=== PATIENT | male | born 1955 | race Caucasian/White ===

== ENCOUNTER → 2020-09-09 | Outpatient (CLI) | payer OTHER, SELFPAY ==
--- NOTE | 2020-09-09 08:00 | PROSBIL_PTH ---
PATIENT: LORI ROPER LOC: [facility] U#:[id number] AGE/SX: 65/M ROOM: RE09/09/[address]: Dr. Robert Anderson MD : 1955 BED: DIS: 09/09/2020 SPEC #: [id number] RECD: 09/09/20 10:34 STATUS: CELESTE RECurtis #: [id number] GRETCHEN: 09/09/20 08:[address]: Robert Anderson DEPT: SURGICAL PATHOLOGY RECD BY: Kim Sibley ENTERED: 09/09/20 12:36 SP TYPE: PROST BX JEROME DR: Dr. Carole Carlos MD Tissues: A - PROSTATE RIGHT B - PROSTATE RIGHT C - PROSTATE RIGHT D - PROSTATE LEFT E - PROSTATE LEFT F - PROSTATE LEFT Procedures: PROSTATE BX HEADER OPERATION: Prostate biopsy PRE-OP DIAGNOSIS: Elevated PSA TISSUE SUBMITTED: A - Right apex, B - Right mid, C - Right base, D - Left apex, E - Left mid, F - Left base MICROSCOPIC DIAGNOSIS A. Right prostate, apex, core biopsy: Prostatic tissue, negative for malignancy. Focal mild chronic inflammation. B. Right prostate, mid, core biopsy: Prostatic tissue, negative for malignancy. Focal mild chronic inflammation C. Right prostate, base, core biopsy: Prostatic tissue, negative for malignancy. D. Left prostate, apex, core biopsy: Prostatic tissue, negative for malignancy. Focal basal cell hyperplasia and chronic inflammation. E. Left prostate, mid, core biopsy: Prostatic tissue, negative for malignancy. Focal chronic inflammation. F. Left prostate, base, core biopsy: Prostatic tissue, negative for malignancy. Focal mild chronic inflammation SJ:minh 09/10/2020 MICROSCOPIC DESCRIPTION Slides are reviewed. GROSS DESCRIPTION A - Received is one container designated prostate, right apex. The specimen consists of two elongated fragments of light walsh-white soft tissue measuring 1 and 1.5 cm in length and 0.1 cm in diameter. The specimen is totally submitted in one cassette. B - Received is one container designated prostate, right mid. The specimen consists of two elongated fragments of light walsh-white soft tissue each measuring 1.2 cm in length and 0.1 cm in diameter. The specimen is totally submitted in one cassette. C - Received is one container designated prostate, right base. The specimen consists of three elongated fragments of light walsh-white soft tissue measuring 0.3 to 0.6 cm in length and 0.1 cm in diameter. The specimen is totally submitted in one cassette. D - Received is one container designated prostate, left apex. The specimen consists of two elongated fragments of light walsh-white soft tissue each measuring 1.5 cm in length and 0.1 cm in diameter. The specimen is totally submitted in one cassette. E - Received is one container designated prostate, left mid. The specimen consists of two elongated fragments of light walsh-white soft tissue measuring 1.5 and 1.8 cm in length and 0.1 cm in diameter. The specimen is totally submitted in one cassette. F - Received is one container designated prostate, left base. The specimen consists of two elongated fragments of light walsh-white soft tissue each measuring 1.5 cm in length and 0.1 cm in diameter. The specimen is totally submitted in one cassette. / SJ:rg 09/09/20 TC:5 CPT: 68063 x6
== END | disposition home or self-care (01) ==
LOC: LABSPEC 11:04
PROVIDERS: PCP Internal Medicine; Referring Provider Urology; Visit Provider Urology
DX: R97.20 Elevated prostate specific antigen [PSA] (principal)
CPT/HCPCS: 88305; G0416

== ENCOUNTER 2022-04-30 06:43 | Day surgery (SDC) | payer MEDICARE, BC, SELFPAY ==
[2022-04-30] MEDS: Lactated Ringers 1,000 ML 15 ML IV (06:55)
[2022-04-30 07:07] VITALS: BP 134/77; PULSE 69; RESP 16; TEMP 36.6; O2SAT 96; BMI 30.8
--- NOTE | 2022-04-30 07:09 | HP.PCM_ITS ---
HPI - General [facility] Narrative LORI ROPER, is a 67 M who presents for screening colonoscopy. Patient has last colonoscopy 5 years ago and a polyp was removed. Patient denies abdominal pain or blood in stool. FOR[facility]LY [facility] Medical History (Updated 04/30/22 @ 07:[address] Andrea Marino MD) Benign prostatic hyperplasia with lower urinary tract symptoms Essential (primary) hypertension High cholesterol History of colon polyps Hypercholesteremia Non-smoker Wears glasses Home Medications acetaminophen 500 mg tablet (Tylenol Extra Strength) 500 mg PO Q6H PRN Pain 03/09/22 [History Last Taken Unknown] ascorbate calcium (vitamin C) 500 mg tablet 500 mg PO DAILY 03/09/22 [History Last Taken Unknown] lysine 1,000 mg tablet 1,000 mg PO DAILY 03/09/22 [History Last Taken Unknown] multivitamin 1 tab PO DAILY 03/09/22 [History Last Taken Unknown] omega-3 fatty acids 1,000 mg capsule (Super [place]-3) 1,000 mg PO DAILY 03/09/22 [History Last Taken Unknown] psyllium husk 3.4 gram/5.4 gram oral powder (Metamucil) 1 tbsp PO PRN PRN STOOL SOFTENER 03/09/22 [History Last Taken Unknown] quercetin 500 mg capsule 500 mg PO DAILY 03/09/22 [History Last Taken Unknown] rosuvastatin 5 mg tablet 5 mg PO DAILY 03/09/22 [History Last Taken Unknown] saw palmetto 500 mg capsule 500 mg PO BID 03/09/22 [History Last Taken Unknown] turmeric root extract 500 mg capsule 500 mg PO DAILY 03/09/22 [History Last Taken Unknown] zinc gluconate 50 mg tablet 50 mg PO DAILY 03/09/22 [History Last Taken Unknown] cholecalciferol (vitamin D3) 25 mcg (1,000 unit) tablet (Vitamin D3) 25 mcg PO DAILY 04/28/22 [History Last Taken Unknown] Allergy/AdvReac Type Severity Reaction Status Date / Time No Known Allergies Allergy Verified 04/30/22 07:07 Family History (Updated 03/08/22 @ 15:45 by Francisca Mott) Father Prostate cancer CVA (cerebral vascular accident) Mother Hypertension Surgical History History of colonoscopy History of prostate biopsy History of vasectomy History of wisdom tooth extraction Social History (Updated 03/08/22 @ 15:46 by Francisca Mott) household members: spouse Smoking Status: Never smoker alcohol intake: never Past Medical/Surgical History Planned Operation Planned Operative Procedure/s: COLONOSSCOPY Previous Hospitalizations/Surgeries HX Hospitalizations: No Any Problems With Anesthesia: No You/Your Family Experience Fever (Hyperthermia) With Anes: No Cholinesterase deficiency: No Cardiovascular Hx Hypertension: No Respiratory Hx Sleep Apnea: No Hx Respiratory Tract Infection/Cold (presently): No Do You Snore Loudly (louder than talking or can be heard): No Do You Often Feel Tired/ Fatigued/ Sleepy Dring Daytime?: No Has Anyone Observed You Stop Breathing During Sleep?: No Result (for STOP score): Negative Smoking Status: Never smoker Neurological Does patient have nerve stimulator: No Allergies No Known Allergies Allergy (Verified 04/30/22 07:07) Discharge Is Pt Admitted From a Fdc, or a Half-Way: No After D/C, Where Do you Plan to Go: Return Home Physical Exam Const alert and oriented x3 HEENT normocephalic Eyes PERRL Resp normal respiratory effort and normal air movement Cardio regular rate and regular rhythm GI soft to palpation, non-tender and non-distended Extremity normal to inspection Assessment & Plan Assessment/Plan (1) History of colon polyps: PLAN: Patient is here for surveillance colonoscopy due to history of colon polyps 5 years ago. I explained endoscopy in detail to the patient. I explained the risks including but not limited to stroke or heart attack with anesthesia, perforation of the GI tract, bleeding, infection. I explained that any of these could necessitate further emergency surgery. The patient understands and all questions were answered sufficiently. The patient wishes to proceed with procedure. Andrea Marino MD Pager: [facility] [address] [place] [address], [address] [place] [address] Office: Surgery Risks - Colonoscopy Risks Include but are not Limited To: Risks include but are not limited to: Bleeding, perforation requiring further surgery, inability to complete colonoscopy requiring barium enema.
--- NOTE | 2022-04-30 07:59 | OP.COLON_ITS ---
Patient Name: Fahad Nevarez Procedure Date: 04/30/2022 7:15 AM Date of : 1955 Age: 67 Procedure: Colonoscopy Indications: High risk colon cancer surveillance: Personal history of colonic polyps Providers: Andrea Marino MD Medicines: Monitored Anesthesia Care Patient Profile: This is a 67 year old male. Refer to note in patient chart for documentation of history and physical. Last Colonoscopy: 5 years ago. Complications: No immediate complications. Procedure: Pre-Anesthesia Assessment: - Prior to the procedure, a History and Physical was performed, and patient medications and allergies were reviewed. The patient's tolerance of previous anesthesia was also reviewed. The risks and benefits of the procedure and the sedation options and risks were discussed with the patient. All questions were answered, and informed consent was obtained. Prior Anticoagulants: The patient has taken aspirin, last dose was 1 day prior to procedure. After reviewing the risks and benefits, the patient was deemed in satisfactory condition to undergo the procedure. After I obtained informed consent, the scope was passed under direct vision. Throughout the procedure, the patient's blood pressure, pulse, and oxygen saturations were monitored continuously. The colonoscope was introduced through the anus and advanced to the cecum, identified by appendiceal orifice and ileocecal valve. The colonoscopy was performed without difficulty. The patient tolerated the procedure well. The quality of the bowel preparation was good. Scope In: 7:30:31 AM Scope Withdrawal Time 0 hours 8 minutes 13 seconds Scope Out: 7:55:31 AM Total Procedure Duration Time 0 hours 25 minutes 0 seconds Findings: A polyp was found in the rectum. The polyp was removed with a hot snare. Resection and retrieval were complete. The exam was otherwise without abnormality on direct and retroflexion views. Impression: - One polyp in the rectum, removed with a hot snare. Resected and retrieved. - The examination was otherwise normal on direct and retroflexion views. Recommendation: - Discharge patient to home. - Resume previous diet. - Continue present medications. - Await pathology results. - Repeat colonoscopy in 5 years for surveillance based on pathology results. Procedure Code(s): --- Professional --- 88194, Colonoscopy, flexible; with removal of tumor(s), polyp(s), or other lesion(s) by snare technique Diagnosis Code(s): --- Professional --- Z86.010, Personal history of colonic polyps K62.1, Rectal polyp CPT copyright 2017 [employer]. All rights reserved. The codes documented in this report are preliminary and upon medical lab technologist review may be revised to meet current compliance requirements. Andrea Marino MD 04/30/2022 7:59:01 AM This report has been signed electronically. Number of Addenda: 0 Note Initiated On: 04/30/2022 7:15 AM
--- NOTE | 2022-04-30 08:00 | OP.CCLET_ITS ---
04/30/2022 Carole Carlos Re : Colonoscopy procedure for Fahad Nevarez Dear Terrance This procedure was performed on Saturday, April 30, 2022. My impressions and recommendations are as follows: Impressions : - One polyp in the rectum, removed with a hot snare. Resected and retrieved. - The examination was otherwise normal on direct and retroflexion views. Recommendations : - Discharge patient to home. - Resume previous diet. - Continue present medications. - Await pathology results. - Repeat colonoscopy in 5 years for surveillance based on pathology results. My findings are described in the full procedure note, which is enclosed. If I can be of further assistance, please feel free to contact me at Doctor phone number(s): , Work: . Sincerely, Andrea Marino MD 04/30/2022 7:59:01 AM This report has been signed electronically.
--- NOTE | 2022-04-30 08:00 | COLBX_PTH ---
PATIENT: LORI ROPER LOC: [facility] U#:[id number] AGE/SX: 67/M ROOM: RE04/30/[address]: Dr. Andrea Marino MD : 1955 BED: DIS: 04/30/2022 SPEC #: [id number] RECD: 04/30/22 11:26 STATUS: CELESTE LOVE #: [id number] GRETCHEN: 04/30/22 08:[address]: Andrea Marino DEPT: SURGICAL PATHOLOGY RECD BY: Jorje Flores ENTERED: 04/30/22 11:58 SP TYPE: COLON BX OTHR DR: Dr. Carole Carlos MD Tissues: Rectum, NOS Procedures: Surgery Specimen Level IV HEADER OPERATION: Colonoscopy, biopsy and polypectomy ? open access (MAC) PRE-OP DIAGNOSIS: History of colon polyps TISSUE SUBMITTED: Biopsy rectal polyp MICROSCOPIC DIAGNOSIS Rectal polyp, biopsy: Fragments of tubular adenoma. AM:minh 05/04/2022 MICROSCOPIC DESCRIPTION Slides are reviewed. GROSS DESCRIPTION Received in fixative is one container labeled with the patient's name and designated biopsy rectal polyp. The specimen consists of two irregular fragments of walsh-pink polyp measuring 0.8 x 0.4 x 0.1 cm. Multiple fragments of fecal material are also noted. The entire specimen is submitted in one cassette. / SJ:minh 04/30/2022 TC:5 CPT: 01121
[2022-04-30 08:01] VITALS: BP 106/74; BP 134/77; PULSE 70; RESP 18; TEMP 37; O2SAT 94
[2022-04-30 08:02] VITALS: BP 106/72; BP 134/77; PULSE 70; RESP 18; O2SAT 94
[2022-04-30 08:11] VITALS: BP 109/79; BP 134/77; PULSE 72; RESP 18; O2SAT 96
[2022-04-30 08:15] VITALS: BP 109/81; BP 134/77; PULSE 68; RESP 18; TEMP 36.1; O2SAT 95
[2022-04-30 08:40] VITALS: BP 134/77
== END 2022-04-30 09:00 | disposition home or self-care (01) ==
LOC: EN 06:45 → AC 06:47
PROVIDERS: PCP Internal Medicine; Referring Provider Internal Medicine; Visit Provider Surgery
PROC: 0DJD8ZZ Inspection of Lower Intestinal Tract, Via Natural or Artificial Opening Endoscopic (ICD-10-PCS; CPT 45378; principal; 2022-04-30 07:55)
DX: Z12.11 Encounter for screening for malignant neoplasm of colon (principal); D12.8 Benign neoplasm of rectum; E78.00 Pure hypercholesterolemia, unspecified; Z86.010 Personal history of colon polyps; Z79.899 Other long term (current) drug therapy
CPT/HCPCS: 45385; 88305; J7120; J2405